=== PATIENT | male | born 1955 | race Caucasian/White ===

== ENCOUNTER 2025-04-16 09:37 | Inpatient (IN) | payer MEDICARE ==
[2025-04-08 15:40] LABS: BASOPHILS % (AUTO) 0.4 % (0-1); EOSINOPHILS # (AUTO) 0.3 X10'3 (0-0.9); EOSINOPHILS % (AUTO) 5.2 % (0-6); LYMPHOCYTES # (AUTO) 0.7 X10'3 (1.1-4.8); LYMPHOCYTES % (AUTO) 12.2 % (21-51); MEAN CORPUSCULAR HEMOGLOBIN 31.4 PG (27.0-31.0); MEAN CORPUSCULAR HGB CONC 33.9 g/dL (33.0-36.5); MEAN CORPUSCULAR VOLUME 92.7 FL (78-98); MEAN PLATELET VOLUME 7.9 FL (7.4-10.4); MONOCYTES # (AUTO) 0.6 X10'3 (0-0.9); MONOCYTES % (AUTO) 11.2 % (2-12); NEUTROPHILS # (AUTO) 4.1 X10'3 (1.8-7.7); PRE OP HEMOGLOBIN 16.6 g/dL (14.0-17.9); PRE OP PLATELET COUNT 214 X10'3 (140-440); PRE OP WHITE BLOOD COUNT 5.7 10'3 (4.8-10.8); RED BLOOD COUNT 5.29 X10'6 (4.70-6.10); RED CELL DISTRIBUTION WIDTH 14.2 % (11.5-14.5)
[2025-04-08 17:12] LABS: ALBUMIN 3.6 G/DL (3.4-5.0); ALKALINE PHOSPHATASE 116 IU/L (46-116); BLOOD UREA NITROGEN 23 MG/DL (7-18); BUN/CREATININE RATIO 21.5 (10.0-20.0); CALCIUM 8.8 MG/DL (8.5-10.1); CHLORIDE 104 MMOL/L (99-107); CREATININE 1.07 MG/DL (0.60-1.10); PRE OP ALT 46 U/L (30-65); PRE OP ANION GAP 7 (8-16); PRE OP AST 28 U/L (10-37); PRE OP BILIRUB, TOTAL 0.6 MG/DL (0.0-1.0); PRE OP GLUCOSE 103 MG/DL (70-104); PRE OP POTASSIUM 3.4 MMOL/L (3.4-5.1); PRE OP SODIUM 142 MMOL/L (135-145); TOTAL CARBON DIOXIDE 31.2 MMOL/L (24-32); TOTAL PROTEIN 7.1 G/DL (6.4-8.2); eCRCL 0 ML/MIN; eGFR 69 ML/MIN
[~2025-04-16] VITALS: Ht 185.4 cm; Wt 122.2 kg
[2025-04-16] VITALS (23 sets, daily range): BP systolic 108–172; BP diastolic 60–83; PULSE 58–92; RESP 11–18; TEMP 97–98.1; O2SAT 91–99
[2025-04-16] MEDS: tranexamic acid 1gm/0.7% sal. 100 ML IV ONE (05:30)
[~2025-04-16 09:37] MED LIST: AMLO5TAB16 PO; ATOR-2 PO; LISI1TAB51 PO; NOVRI SQ; NPH,100V2 SQ
[2025-04-16] MEDS ORDERED: vancomycin 1,000mg inj ONE (10:08)
[2025-04-16] MEDS: ringers solution, lacted 1,000 ML IV SCH ×2 (10:28→23:08)
[2025-04-16] MEDS: VANCOMYCIN/H2O 1.5g/300mL PB 300 ML IV ONE (10:28)
[2025-04-16] MEDS: CEFAZOLIN 3GM/DEXTROSE 150mL 150 ML IV ONE (10:28)
[2025-04-16] MEDS: famotidine 20mg tablet PO ONE (10:30)
[2025-04-16] MEDS ORDERED: tetracaine 1% (10mg/ml) pres. free inj. ONE (11:28)
[2025-04-16] MEDS ORDERED: fentaNYL/PF 50MCG/1 ML 2ML syringe ONE (11:30)
[2025-04-16] MEDS ORDERED: MIDAZolam 1mg/ml 10ml vial ONE (11:30)
[2025-04-16] MEDS ORDERED: propofol inj 20 ML IV ONE ×2 (13:59)
[2025-04-16] MEDS ORDERED: ROPIVAcaine 0.5% (5mg/ml) 30ml vial ONE (13:59)
[2025-04-16] MEDS ORDERED: TRANEXAMIC ACID in 0.7% saline 1,000 MG/100 ML IVPB IV ONE (14:00)
[2025-04-16] MEDS ORDERED: morphine 4 MG/ML inj SYRINge IV PRN (14:10)
[2025-04-16] MEDS ORDERED: ROPIVAcaine 0.2% (10 MG/5 ML) BOLUS INJECTION ADDCANAL PRN (14:10)
[2025-04-16] MEDS ORDERED: HYDROmorphone/PF 0.2 MG/ML SYRINGE IV PRN ×2 (14:10)
[2025-04-16] MEDS ORDERED: labetalol 20mg/4ml (5mg/ml) syringe IV PRN (14:10)
[2025-04-16] MEDS ORDERED: hydrALAZINE 20mg/ml inj. IV PRN (14:10)
[2025-04-16] MEDS ORDERED: morphine 2 MG/ML inj. syringe IV PRN (14:10)
[2025-04-16] MEDS ORDERED: ondansetron/PF 4mg/2ml inj IV PRN (14:10)
[2025-04-16] MEDS ORDERED: diphenhydrAMINE 25mg capsule PO PRN ×2 (15:05)
[2025-04-16] MEDS ORDERED: PCA WASTE DOCUMENTATION 1 MG ML MC SCH (15:05)
[2025-04-16] MEDS ORDERED: magnesium hydroxide 30ml (MOM) UD suspension PO PRN (15:05)
[2025-04-16] MEDS ORDERED: HYDROmorphone inj. 0.5 MG/0.5 ML DISP.SYRIN IV PRN (15:05)
[2025-04-16] MEDS ORDERED: bisacodyl 10mg suppository rectal RC PRN (15:05)
[2025-04-16] MEDS ORDERED: naloxone 0.4 mg/ml inj IV PRN (15:05)
[2025-04-16] MEDS ORDERED: acetaminophen 325mg tablet PO PRN (15:05)
--- NOTE | 2025-04-16 15:29 | OPERATIVE REPORT ---
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 Size 11 standard femur right Press-Fit Right 10 mm medial congruent polyethylene. Persona rash patella 38 mm Press-Fit Estimated Blood Loss: 300 mL Specimen Removed: Degenerative bone, meniscal tissue, cruciate tissue Description of Procedure: This patient was taken to the operating room after I had obtained informed consent I discussed with them in review of the indications risks benefits limitations and potential complications of the surgery I answered all of his questions he seems well informed of the procedure. I signed his right knee at this time is given prophylactic intravenous antibiotics had a discussion with an esthesiologist was then taken to the operating room where upon he was given a spinal anesthetic placed in the supine position on the OR table his left leg was placed in an SCD device his right leg was placed in a well-padded upper thigh tourniquet. Surgical time-out was taken per protocol and the case was begun. Esmarch was used for exsanguination and tourniquet was insufflated IO been dressing was used to cover the entirety of the skin both anterior and posterior. Anterior incision was mapped out with a sterile felt tip marker. Anterior incision was then made measuring approximately 10 in with a medial parapatellar approach was accomplished with electrocautery hemostasis was achieved as as well during the approach and throughout the case. Patella was everted to find that had extensive grade 4 degenerative changes with surrounding osteophytes using a freehand technique patella osteotomy was accomplished removing the amount of thickness of the his implant. This was protected with a skid after it had been sized to a 38 drilled who was subluxed laterally to expose the distal femur osteophytes around the femur were resected with a rongeur. Medullary canal was established with a drill intramedullary mino was used for the distal alignment cut. 7 this cut was made additional 2 mm cut because of the patient had a mild 5 degree flexion contracture The plate in the knee was now placed in hyperflexion retractors were placed both medial and lateral with Homans and posterior the posterior cruciate after soft tissues were resected including the meniscal tissues and cruciate tissues prior to placement of of the retraction devices. Medullary canal was established with a drill intramedullary mino was placed for alignment of the tibial cut proximally 10 mm to 12 mm with cut for the proximal tibial osteotomy was used and made perpendicular with a 3 degree posterior slope. Flexion-extension gaps were found to be equal unstable gap chest adjustment device and tension or again confirmed this. Proximal tibial was now drilled and broached for placement of the definitive Press-Fit implant. Four in one cutting block was applied after the distal femur was sized to be a size 11 3 of external rotation was using posterior referencing. Fall and cutting block was now knee and utilized and cut in the anterior and anterior chamfer followed by posterior and posterior chamfer cuts trial femoral component was placed with the tibial component 10 mm temporary medial congruent liner was placed in the knee and knee was taken through range of motion found to get full extension that was stable and full flexion in his very stable patella tracked centrally. Trial components were removed bony cut surfaces were copiously irrigated tourniquet had been released and hemostasis was checked and controlled with electrocautery. Fixation of the tibia with a Press-Fit tibia was accomplished in with excellent bone quality was found to be very stable. Distal femoral component was likewise quite stable when did not require augmentation with cement. Medial congruent liner was placed in the knee and knee was taken advanced through a range of motion and found to be stable. Patella was clamped into position in the Press- Fit fashion as well. Pulsatile irrigation of the proximally 2-3 L with antiseptic Ancef 1 gram/liter was used and antiseptic solution was used for irrigation. Hemostasis was supported with thrombin spray/Vistaseal. 1 g of vancomycin powder was placed in the knee Hemovac medium-size Hemovac was placed in the lateral gutter exited out proximally and laterally to close suction. Closure of the VMO approach was accomplished with interrupted sutures of the number two FiberWire interrupted and 0. and of the one Vicryl. Subcuticular closure was accomplished with 2-0 Vicryl skin was closed with skin lavonne. Sterile dressing was applied held in position with island dressing good distal pulses had returned to the foot with a capillary refill. Patient was now given a adductor canal block with on Q pump by anesthesiologist transferred to recovery room in stable condition there were no apparent perioperative complications Counts repoted as correct: Yes HAWK MARISCAL MD Apr 16, 2025 15:29
[2025-04-16] MEDS: ROPIVAcaine 0.2%/PF PUMP/bolus 545 ML ADDCANAL SCH (15:32)
--- NOTE | 2025-04-16 15:59 | RADIOLOGY REPORT ---
EXAM: DI KNEE LIMITED (AP/LAT) CLINICAL HISTORY: Postop COMPARISON: None TECHNIQUE: DI KNEE LIMITED (AP/LAT) Findings/Impression: 2 views of the right knee. There is no evidence of an acute fracture, dislocation, blastic, or lytic lesions. Right total knee arthroplasty with postsurgical changes.
[2025-04-16] MEDS: oxyCODONE IR 5mg (immed. release) tablet PO PRN (18:55)
--- NOTE | 2025-04-16 19:50 | CONSULTATION REPORT - RESIDENT ---
Consult Providers to CC Resident Creating Document: VINICIODOTVALEAGATA GOMEZ History of Present Illness Primary Medical Doctor: Dr. 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 Daniel. He do reports that he had an MRI which showed ACL, PCL, meniscal tears and without cartilage . Complained of decreased range of motion in the right knee for the past six months. He endorses that he is taking NPH twice a day, dose of 35 units and regular insulin with 15 twice a day and with a 10-15 units according to sliding scale in the afternoon. He denied other joint problems. He denied chest pain, shortness of breath, wheeze, fever, cough, leg pain, abdominal pain, abdominal distention, decreased urine output, constipation, diarrhea, headache, dizzy, syncope, seizures. Discuss her code status with the patient and patient wants to be in full code. Machine Joiner Cementer is Dr. Tomas Bhatia Allergies: Coded Allergies: No Known Allergies (Unverified , 04/15/25) Home Medications Home Medications Active Reported Novolin N (Nph, Human Insulin Isophane) 100 Unit/Ml Vial 35 Unit SQ BIDBD Novolin R (Insulin Regular, Human) 100 Unit/Ml Vial 15 Units SQ TIDAC Amlodipine Besylate 5 Mg Tablet 1 Tab PO DAILY Lisinopril-Hctz 20-12.5 mg Tab (Lisinopril/Hydrochlorothiazide) 20 Mg-12.5 Mg Tablet 2 Tab PO DAILY Atorvastatin Calcium 80 Mg Tablet 1 Tab PO DAILY Past Medical History Past Medical History Type 1 diabetes mellitus Hypertension Hyperlipidemia Past Surgical History Surgical History Comment Lumbar laminectomy in 1992 Arthroscopic repair of right knee meniscus Appendectomy 10 years back Past Social History Social History Comment He denied smoking, drug use He reports that he is drinking one drink per day for more than 30 years(beer/wine) Lives in his home with the and he got good support ROS ROS Reviewed in full and negative except positive pertinent in HPI Exam Vitals: Vital Signs Date Time Temp Pulse Resp B/P (MAP) Pulse Ox O2 Delivery O2 Flow Rate FiO2 04/16/25 18:55 17 04/16/25 17:44 69 126/66 (86) 97 Room Air 0.0 04/16/25 14:54 97.2 General: General: Awake and Alert, oriented to time place person. no acute distress. HEENT: Conjunctiva pink, Sclera clear, Mucus Membranes moist. Neck: Supple without masses and tenderness. Respiratory system: Unlabored. Lungs clear to auscultation bilaterally. Cardiovascular: Regular Rate and rhythm, normal S1 and S2 without murmur, rub or gallop. Gastrointestinal: Soft and non tender no organomegaly Neurological system: No function neurological deficits Psychiatric: Mood and affect is normal Extremities: No cyanosis,clubbing or edema. Right knee is covered with dressing. Peripheral pulses are present Skin: Warm and dry. 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 b.i.d. gabapentin p.o. t.i.d., Tylenol 650 mg q.6 H p.o. Dilaudid p.r.n., oxycodone [address] Daniel is on board On enoxaparin 40 mg subQ Q 24 H for DVT prophylaxis Type 1 diabetes mellitus Ordered A1c Continuous glucose monitoring is showing blood sugars in the 300s On NPH insulin 35 b.i.d. subcutaneous and regular insulin 15 units t.i.d. Continue to monitor blood was with a target of 140-180 Hypertension Blood pressure within normal range Continuing amlodipine 5 mg, lisinopril hydrochlorothiazide 20/12.5 Continue to monitor blood pressure with a target of systolic blood pressure less than 130 Hyperlipidemia Ordered lipid panel Obesity Class two Follow up with primary care physician in outpatient for sleep apnea evaluation. Code status: Full code DVT prophylaxis: Enoxaparin subQ Camila HARDING resident Date of Service: Apr 16, 2025 Billing Provider: POLLO ZAMORANO MD Common Visit Codes: 02404-ONHWQVS INP/OBS CARE (HIGH) Assessment/Plan Assessment Evaluated the patient with the help of residents. Discussed the case with them. Reviewed note by the resident Dr.Suragani DUMONT. Agree with his assessments and plans. I also reviewed the patient's records myself. This included labs, radiology, and notes from other providers. No additional points at this time VALE ANDRE, AGATA Apr 16, 2025 19:50 POLLO ZAMORANO MD Apr 17, 2025 11:41
[2025-04-16] MEDS: gabapentin 300mg capsule PO SCH (20:06)
[2025-04-16] MEDS: sennosides 8.6mg tablet PO SCH (20:07)
[2025-04-16] MEDS: acetaminophen 325mg tablet PO SCH (20:07)
[2025-04-16] MEDS: tranexamic acid inj. 1,200 MG in normal saline 100ml IV soln 88 ML IV ONE (20:08)
[2025-04-16] MEDS: HYDROmorphone 1 mg/ml syringe IV PRN (20:13)
[2025-04-16] MEDS: ondansetron/PF 4mg/2ml inj IV PRN (20:13)
[2025-04-16] MEDS: ceFAZolin/D5W- 1GM premix 50 ML IV SCH (22:09)
[2025-04-16] MEDS: potassium Cl 20mEq in NS 1,000 ML IV SCH (22:10)
[2025-04-16] MEDS: NPH, human insulin isophane inj. SQ SCH (22:40)
[2025-04-16] MEDS: insulin regular, human U-100 10ml vial - multi-dose SQ SCH (22:42)
[2025-04-16 23:03] LABS: HEMATOCRIT 43.7 % (42.0-52.0); HEMOGLOBIN 14.9 g/dl (14.0-17.9); MEAN CORPUSCULAR HEMOGLOBIN 31.9 PG (27.0-31.0); MEAN CORPUSCULAR HGB CONC 34.2 g/dL (33.0-36.5); MEAN CORPUSCULAR VOLUME 93.5 FL (78-98); RED BLOOD COUNT 4.67 X10'6 (4.70-6.10); WHITE BLOOD COUNT 10.7 X10'3 (4.5-11.0)
[2025-04-16 23:04] LABS: BASOPHILS % (AUTO) 0.3 % (0-1); EOSINOPHILS % (AUTO) 0.2 % (0-6); LYMPHOCYTES # (AUTO) 0.4 X10'3 (1.1-4.8); LYMPHOCYTES % (AUTO) 3.8 % (21-51); MEAN PLATELET VOLUME 7.9 FL (7.4-10.4); MONOCYTES # (AUTO) 0.7 X10'3 (0-0.9); MONOCYTES % (AUTO) 6.4 % (2-12); NEUTROPHILS # (AUTO) 9.6 X10'3 (1.8-7.7); NEUTROPHILS % (AUTO) 89.3 % (42-75); PLATELET COUNT 168 X10'3 (140-440); RED CELL DISTRIBUTION WIDTH 14.1 % (11.5-14.5)
[2025-04-16] MEDS: vancomycin/NS 1 GM ADD-VANTAGE 250 ML IV SCH (23:08)
[2025-04-16 23:19] LABS: ALANINE AMINOTRANSFERASE 41 U/L (12-78); ALBUMIN/GLOBULIN RATIO 1.2 (1.1-1.5); ALKALINE PHOSPHATASE 102 IU/L (46-116); ANION GAP 13 (8-16); ASPARTATE AMINO TRANSFERASE 22 U/L (10-37); BILIRUBIN,TOTAL 1.1 MG/DL (0.1-1.0); BLOOD UREA NITROGEN 22 MG/DL (7-18); CALCIUM 7.9 MG/DL (8.5-10.1); CHLORIDE 105 MMOL/L (99-107); CHOL/HDL RATIO 2.6 (0.00-4.99); CHOLESTEROL 135 MG/DL (0-200); GLUCOSE 294 MG/DL (70-104); HDL CHOLESTEROL 51 MG/DL (35-60); LDL CHOLESTEROL 66 MG/DL (50-100); POTASSIUM 4.1 MMOL/L (3.5-5.1); SODIUM 142 MMOL/L (135-145); TOTAL CARBON DIOXIDE 24.5 MMOL/L (24-32); TOTAL PROTEIN 5.5 G/DL (6.4-8.2); TRIGLYCERIDES 64 MG/DL (20-135); eCRCL 81 ML/MIN; eGFR 75 ML/MIN
[2025-04-16 23:23] LABS: HEMOGLOBIN A1C 6.3 % (4.5-6.2)
[2025-04-17] VITALS (7 sets, daily range): BP systolic 107–154; BP diastolic 55–76; PULSE 70–98; RESP 17–18; TEMP 97.6–98.1; O2SAT 88–97
[2025-04-17] MEDS: oxyCODONE IR 5mg (immed. release) tablet PO PRN (04:49)
[2025-04-17] MEDS: insulin regular, human U-100 10ml vial - multi-dose SQ ONE ×2 (05:40→12:25)
[2025-04-17] MEDS ORDERED: insulin regular, human U-100 10ml vial - multi-dose SQ SCH (07:00)
[2025-04-17] MEDS ORDERED: NPH, human insulin isophane inj. SQ SCH (07:30)
[2025-04-17] MEDS: lisinopril 20mg tablet PO SCH (07:58)
[2025-04-17] MEDS: HYDROchlorothiazide 25mg tablet PO SCH (07:59)
[2025-04-17] MEDS: atorvastatin 20mg tablet PO SCH (08:00)
[2025-04-17] MEDS: amLODIPine 5mg tablet PO SCH (08:02)
[2025-04-17] MEDS: enoxaparin 40mg/0.4ml syringe SQ SCH (08:03)
--- NOTE | 2025-04-17 19:08 | PROGRESS NOTE- Residence ---
Progress Note - Resident Providers to CC Resident Creating Document: BLANCA RODRIGUEZ, RES ~ Antibiotic Timeout Antibiotic Ordered?: No Subjective The patient was seen and examined at bedside today. He has no new complaints. He worked with Physical therapy and they recommended two more sessions for sending him home. He has a continuous glucose monitor on him and readings are high. Increased regular insulin from 15 units to 25 units thrice daily until the patient is in the hospital. Objective Vital Signs Date Time Temp Pulse Resp B/P (MAP) Pulse Ox O2 Delivery O2 Flow Rate FiO2 04/17/25 10:07 97.6 76 17 154/71 (98) 96 Room Air 04/17/25 03:47 2.0 94 Result Diagram: 04/16/25225404/16/252254 General: Awake and Alert, oriented to time place person. no acute distress. HEENT: Conjunctiva pink, Sclera clear, Mucus Membranes moist. Neck: Supple without masses and tenderness. Respiratory system: Unlabored. Lungs clear to auscultation bilaterally. Cardiovascular: Regular Rate and rhythm, normal S1 and S2 without murmur, rub or gallop. Gastrointestinal: Soft and non tender no organomegaly Neurological system: No function neurological deficits Psychiatric: Mood and affect is normal Extremities: No cyanosis,clubbing or edema. Right knee is covered with dressing. Peripheral pulses are present Skin: Warm and dry. 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 Daniel. Continue wound care. PT weight-bearing as tolerated, recommended two more sessions before sending him home. Type 1 diabetes mellitus A1c 6.3. High glucose readings in his continuous glucose monitor. Increased regular insulin from 15 units to 25 units TID Continue NPH 35 units b.i.d. Hypertension Blood pressure within normal range Continuing amlodipine 5 mg, lisinopril hydrochlorothiazide 20/12.5. Continue to monitor blood pressure with a target of systolic blood pressure less than 130 Hyperlipidemia LDL 66. Obesity Class two Follow up with primary care physician in outpatient for sleep apnea evaluation. Code status: Full code DVT prophylaxis: Enoxaparin subQ Disposition: Anticipate discharge tomorrow with home health. Blanca Rodriguez MD Internal Medicine Resident, PGY-1 Date of Service: Apr 17, 2025 Billing Provider: SOFIA ALMANZAR MD, SOWMYA MANJARI, RES Apr 17, 2025 19:08
[2025-04-17] MEDS: celeCOXIB 100mg capsule PO SCH (20:15)
[2025-04-18] MEDS: insulin regular, human 10 units/0.1 ml syringe SQ ONE (03:20)
[2025-04-18 06:00] VITALS: BP 133/68; PULSE 75; RESP 18; TEMP 98; O2SAT 96
[2025-04-18] MEDS: insulin regular, human U-100 10ml vial - multi-dose SQ SCH (08:01)
[2025-04-18 09:48] LABS: BASOPHILS % (AUTO) 0.1 % (0-1); EOSINOPHILS # (AUTO) 0.1 X10'3 (0-0.9); EOSINOPHILS % (AUTO) 0.7 % (0-6); HEMATOCRIT 38.5 % (42.0-52.0); LYMPHOCYTES # (AUTO) 0.4 X10'3 (1.1-4.8); LYMPHOCYTES % (AUTO) 3.4 % (21-51); MEAN CORPUSCULAR HEMOGLOBIN 31.3 PG (27.0-31.0); MEAN CORPUSCULAR HGB CONC 33.8 g/dL (33.0-36.5); MEAN CORPUSCULAR VOLUME 92.7 FL (78-98); MEAN PLATELET VOLUME 8.7 FL (7.4-10.4); MONOCYTES # (AUTO) 0.9 X10'3 (0-0.9); MONOCYTES % (AUTO) 7.8 % (2-12); NEUTROPHILS # (AUTO) 9.7 X10'3 (1.8-7.7); PLATELET COUNT 160 X10'3 (140-440); RED BLOOD COUNT 4.15 X10'6 (4.70-6.10); RED CELL DISTRIBUTION WIDTH 14.3 % (11.5-14.5); WHITE BLOOD COUNT 11.1 X10'3 (4.5-11.0)
[2025-04-18 09:57] LABS: ALANINE AMINOTRANSFERASE 30 U/L (12-78); ALBUMIN 2.5 G/DL (3.4-5.0); ALBUMIN/GLOBULIN RATIO 0.9 (1.1-1.5); ALKALINE PHOSPHATASE 90 IU/L (46-116); ANION GAP 11 (8-16); ASPARTATE AMINO TRANSFERASE 14 U/L (10-37); BLOOD UREA NITROGEN 21 MG/DL (7-18); BUN/CREATININE RATIO 21.9 (10.0-20.0); CALCIUM 8.1 MG/DL (8.5-10.1); CHLORIDE 104 MMOL/L (99-107); CREATININE 0.96 MG/DL (0.60-1.10); GLUCOSE 365 MG/DL (70-104); POTASSIUM 4.4 MMOL/L (3.5-5.1); SODIUM 140 MMOL/L (135-145); TOTAL CARBON DIOXIDE 24.8 MMOL/L (24-32); TOTAL PROTEIN 5.2 G/DL (6.4-8.2); eCRCL 84 ML/MIN; eGFR 78 ML/MIN
[2025-04-18 10:00] VITALS: BP 154/71; PULSE 85; RESP 17; TEMP 98.5; O2SAT 95
--- NOTE | 2025-04-18 11:22 | DISCHARGE SUMMARY-Residence ---
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 by Dr Daniel on 04/16/25 Consultants: Lolis Camacho Complications: None Condition on DC: Stable Continued Medications: Amlodipine Besylate (Amlodipine Besylate) 5 Mg Tablet 1 TAB PO DAILY, TAB 0 Refills Atorvastatin Calcium (Atorvastatin Calcium) 80 Mg Tablet 1 TAB PO DAILY, TAB 0 Refills Insulin Regular, Human (Novolin R) 100 Unit/Ml Vial 15 UNITS SQ TIDAC, EACH Lisinopril/Hydrochlorothiazide (Lisinopril-Hctz 20-12.5 mg Tab) 20 Mg-12.5 Mg Tablet 2 TAB PO DAILY, TAB 0 Refills Nph, Human Insulin Isophane (Novolin N) 100 Unit/Ml Vial 35 UNIT SQ BIDBD, EACH Discharge Summary: A 69 years old man with PMH of T1Dm, HLD, HTN, Class 2 obesity with BMI of 35.5, PSH of Lumbar laminectomy in 1992, Arthroscopic repair of right knee meniscus, Appendectomy 10 years back was admitted for the further management for his severe tricompartmental degenerative joint disease right knee by Dr. Daniel with the symptoms of decreased range of motion in the right knee for the past six months. His MRI which showed ACL, PCL, meniscal tears and without cartilage . His talent acquisition lead is Dr Kar Bhatia. Hospital Course: Patient was admitted to the ortho floor for the possible total right knee arthroplasty by Dr Daniel for his painful and declining ranges of motion of right knee over six months. He was consulted with Dr Daniel and underwent the right total knee arthroplasty by Dr Daniel on 04/16/25 without having any complications. His pain was controlled well with Celecoxib, oxycodone and diluadid injections as needed as per Orthosurgerical team management. The wound was requested for the post op dressing and care. All of his home meds were reconciled and reviewed appropriately and continued them during his stay. We increased the dosage of his insulin regular from 15 to 25 units TID for the better blood glucose control during the immediate post op stress induced hyperglycemia. His HbA1C was 6.3. PT was requested for the eval and he did have the PT during his hospitalization and they recommended to have the home health with PT at home as well. He needs the proper sleep study to establish LYNDSEY at the outpatient through the PCP referreal for the possible Cpap Therapy at home. His all of the questions and concerned with addressed with the best knowledge of our team before he was discharged. All of his labs were reviewed WNL with WBC 11.1, hemoglobin 13, hematocrit 38.5, serum sodium 140, potassium 4.4, chloride 104, BUN 21, creatinine 0.96, glucose 374. All of his vitals were stable at that moment with temp 98.5 F, MS 85/minute, RR 70/minute, BP 144/71 mm Hg, pulse oximetry 95% on room air .On exam, General: Awake and Alert, oriented to time place person. no acute distress. HEENT: Conjunctiva pink, Sclera clear, Mucus Membranes moist. Neck: Supple without masses and tenderness. Respiratory system: Unlabored. Lungs clear to auscultation bilaterally. Cardiovascular: Regular Rate and rhythm, normal S1 and S2 without murmur, rub or gallop. Gastrointestinal: Soft and non tender no organomegaly Neurological system: No function neurological deficits Psychiatric: Mood and affect is normal Extremities: No cyanosis,clubbing or edema. Right knee is covered with dry and intact dressing. Peripheral pulses are present and no tingling and numbness o dali that leg. Skin: Warm and dry. Discharge instructions: -please return to ER for any emergency conditions including bleeding from the operative site, intolerable progressive pain/inability to walk after PT done, inflamed operative sites, fever with chills and rigors etc. -please follow up with PCP and ortho Dr. Daniel in 1-2 weeks after discharge for further management including labs check CBC CMP procalcitonin, father diabetes control with insulin adjustment, postoperative knee wound care and follow up plan with Dr. Daniel etc. -medication compliance and lifestyle modifications important to control blood glucose level -please take pain medications as prescribed or tylenol 650 mg TID as needed for the pain Resident MD attestation: Patient was seen, examined and discussed with attending MD, Dr. Manjeet BERRY MD Internal Medicine Resident, PGY2 [facility] *Problems/Diagnosis: (1) Degenerative arthritis of right knee Status: Resolved (2) S/P total knee arthroplasty Status: Resolved Total Time Spent on D/C: > 30 Minutes Date of Service: Apr 18, 2025 Billing Provider: SOFIA ALMANZAR MD, TIN, RES Apr 18, 2025 11:21
== END 2025-04-18 15:55 | disposition home health service (06) | DRG 470 ==
LOC: UNDOADMIN 09:37 → PAS IN 09:37 → ORTHO 4S 17:41
PROVIDERS: ADMIT Orthopaedic Surgery; ATTEND Orthopaedic Surgery
PROC: 0JH80VZ Insertion of Infusion Pump into Abdomen Subcutaneous Tissue and Fascia, Open Approach (ICD-10-PCS; 2025-04-16)
PROC: 3E013BZ Introduction of Anesthetic Agent into Subcutaneous Tissue, Percutaneous Approach (ICD-10-PCS; 2025-04-16)
PROC: 0SRC0JA Replacement of Right Knee Joint with Synthetic Substitute, Uncemented, Open Approach (ICD-10-PCS; principal; 2025-04-16 11:23)
DX: M17.11 Unilateral primary osteoarthritis, right knee (principal); I10 Essential (primary) hypertension; E66.812 Obesity, class 2; E78.5 Hyperlipidemia, unspecified; E10.9 Type 1 diabetes mellitus without complications; Z68.35 Body mass index [BMI] 35.0-35.9, adult
CPT/HCPCS: 36415; 73560; 80053; 80061; 82948; 83036; 85025; 87081; 97110; 97116; 97161; 97530; A4215; A4615; A6253; A6258; A6446; A6449; A6454; A6455; A7000; C1758; C1776; C9250; G0378; J0690; J1171; J1650; J1815; J2250; J2405; J2704; J2795; J3010; J3370; J3372; J3480; J3490; J7120